=== PATIENT | female | born 1990 | race Two or more races ===

== ENCOUNTER 2024-07-25 10:00 | Emergency (ER) | payer OTHER ==
[~2024-07-25] VITALS: Ht 162.6 cm; Wt 68.0 kg
[2024-07-25 11:15] LABS: URINE APPEARANCE Clear; URINE BILIRRUBIN Negative (NEGATIVE); URINE BLOOD Large; URINE COLOR Orange; URINE GLUCOSE Negative (NEGATIVE); URINE KETONE Negative (NEGATIVE); URINE LEUKOCYTE Trace; URINE NITRATE Negative; URINE PROTEIN 30 (NEGATIVE); URINE UROBILINOGEN 0.2 E.U./dl
[2024-07-25 11:17] LABS: HEMATOCRIT 41.7 % (36.0-45.00); HEMOGLOBIN 13.9 g/dL (12.0-15.00); MEAN CELL VOLUME 89.3 fL (80.00-100.00); MEAN CORPUSCULAR HEMOGLOBIN 29.6 pg (27.00-32.0); MEAN CORPUSCULAR HGB CONC 33.2 g/dl (32.0-36.0); PLATELET COUNT 240 K/uL (150-450); RED BLOOD COUNT 4.67 M/uL (4.00-6.00); RED CELL DISTRIBUTION WIDTH 13.5 % (11.5-14.5)
[2024-07-25 11:20] LABS: URINE BACTERIA 452.8 uL (0.0-1933); URINE EPITHELIAL CELLS 8.3 uL (0.0-38.8); URINE RBC 256.7 uL (0.0-20.8); URINE WBC 51.5 uL (0.0-23.2)
[2024-07-25 11:34] LABS: INR 1.05; PARTIAL THROMBOPLASTIN TIME 28.5 SECONDS (22.0-34.0); PROTHROMBIN TIME 11.4 SECONDS (9.0-11.5)
[2024-07-25 11:54] LABS: ALBUMIN 4.2 gm/dL (3.4-5.0); ALKALINE PHOSPHATASE 94 U/L (50-136); ALT/SGPT 23 U/L (12-78); ANION GAP 11 (10.0-20.0); AST/SGOT 17 U/L (15-37); BILIRUBIN TOTAL 0.44 mg/dL (0.3-1.2); BLOOD UREA NITROGEN 12 mg/dL (7-18); BUN CREA RATIO 13 (7.0-25.0); CARBON DIOXIDE 26 mEq/L (21-32); CHLORIDE 109 mmol/L (98-107); CREATININE SERUM 0.93 mg/dL (0.55-1.02); GFR 68.61; GLOBULINA 3.4 G/DL (2.4-3.5); GLUCOSE FASTING 90 mg/dL (65-100); HCG QUANTITATIVE < 1 mUI/mL (1-3); OSMOLALITY SERUM 282 MOSM/KG (275-295); POTASSIUM 4.28 mEq/L (3.5-5.1); SODIUM 142 mmol/L (136-145); TOTAL PROTEIN 7.6 gm/dL (6.4-8.2)
[2024-07-25] MEDS ORDERED: CEFTRIAXONE SODIUM 1,000 MG VIAL IM ONE (12:15)
[2024-07-25] MEDS ORDERED: NORFLEX100MG PO (14:31)
[2024-07-25] MEDS ORDERED: PEPCID AC20 MG PO (14:31)
[2024-07-25] MEDS ORDERED: BACTRIM DS TAB1 EACH PO (14:31)
== END 2024-07-25 14:38 | disposition home or self-care (01) ==
LOC: ER 10:01
PROVIDERS: General Practice
DX: N83.209 Unspecified ovarian cyst, unspecified side (principal); N93.9 Abnormal uterine and vaginal bleeding, unspecified